=== PATIENT | male | born 1945 | race Hispanic/Latino ===

== ENCOUNTER 2019-07-22 06:29 | Day surgery (SDC) | payer MEDICARE ==
[~2019-07-22] VITALS: Ht 180.3 cm; Wt 125.2 kg
[~2019-07-22 06:29] MED LIST: ACET1TAB25 PO; AEC81 PO; ALBU18HF7 IH; ENAL10TA18 PO; EZET10TA13 PO; FENO135C4 PO; FURO80TA3 PO; GEMF600T5 PO; HUM10VIA SQ; METO25TA6 PO; METO50TA18 PO; METO5TAB2 PO; POTA-79 PO; PREG150C PO; RANI150C4 PO
[2019-07-22] MEDS ORDERED: SODIUM CHLORIDE 0.9% 1000ML 1,000 ML IV ONE (07:00)
[2019-07-22 08:18] VITALS: BP 161/57
[2019-07-22] MEDS ORDERED: potassium (08:27)
[2019-07-22] MEDS ORDERED: bisacodyl (08:27)
[2019-07-22] MEDS ORDERED: atorvastatin (08:27)
[2019-07-22] MEDS ORDERED: enalapril (08:27)
[2019-07-22] MEDS ORDERED: furosemide (08:27)
[2019-07-22] MEDS ORDERED: tramadol (08:27)
[2019-07-22] MEDS ORDERED: vascepa (08:27)
[2019-07-22] MEDS ORDERED: hydrocodon (08:27)
[2019-07-22] MEDS ORDERED: victoza (08:27)
[2019-07-22] MEDS ORDERED: tamsulosin (08:27)
[2019-07-22] MEDS ORDERED: OMEP40CA13 PO (08:27)
[2019-07-22] MEDS ORDERED: ASPI-1197 PO (08:27)
[2019-07-22] MEDS ORDERED: PROPOFOL 10 MG/ML 20ML VIAL IV ONE (08:40)
[2019-07-22 09:09] VITALS: BP 123/73
[2019-07-22 09:14] VITALS: BP 156/76
[2019-07-22 09:19] VITALS: BP 148/68
== END 2019-07-22 09:43 | disposition home or self-care (01) ==
LOC: ENDO 06:29 → DAH 06:29 → ENDO 09:43
PROVIDERS: ATTEND Internal Medicine
DX: Z12.11 Encounter for screening for malignant neoplasm of colon (principal); K63.5 Polyp of colon; K57.30 Diverticulosis of large intestine without perforation or abscess without bleeding; E11.9 Type 2 diabetes mellitus without complications; I10 Essential (primary) hypertension; E78.5 Hyperlipidemia, unspecified; I25.2 Old myocardial infarction; I25.10 Atherosclerotic heart disease of native coronary artery without angina pectoris; M19.90 Unspecified osteoarthritis, unspecified site; Z79.899 Other long term (current) drug therapy; Z79.82 Long term (current) use of aspirin; Z90.49 Acquired absence of other specified parts of digestive tract; Z98.890 Other specified postprocedural states; Z87.891 Personal history of nicotine dependence; Z95.5 Presence of coronary angioplasty implant and graft; Z82.49 Family history of ischemic heart disease and other diseases of the circulatory system; Z83.3 Family history of diabetes mellitus; Z82.5 Family history of asthma and other chronic lower respiratory diseases
CPT/HCPCS: 45380; 45385; 82948 ×3; 88305; 93005; A4215; A4221; A4222; A4223; A4606; A4615; A4663; J2704; J7030

== ENCOUNTER 2024-03-10 11:40 | Day surgery (SDC) | payer MEDICARE ==
[~2024-03-10] VITALS: Ht 180.3 cm; Wt 105.1 kg
[~2024-03-10 11:40] MED LIST changes: -ACET1TAB25 PO; -AEC81 PO; -ALBU18HF7 IH; +ASPI-1197 PO; -ENAL10TA18 PO; -EZET10TA13 PO; -FENO135C4 PO; -FURO80TA3 PO; -GEMF600T5 PO; -HUM10VIA SQ; -METO25TA6 PO; -METO50TA18 PO; -METO5TAB2 PO; +OMEP40CA21 PO; -POTA-79 PO; -PREG150C PO; -RANI150C4 PO; +atorvastatin; +bisacodyl; +enalapril; +furosemide; +hydrocodon; +potassium; +tamsulosin; +tramadol; +vascepa; +victoza
[2024-03-10 12:10] VITALS: BP 159/66; PULSE 72; RESP 19; TEMP 98
[2024-03-10 12:20] LABS: BASOPHILS # (AUTO) 0.01 K/uL (0.00-0.20); BASOPHILS % (AUTO) 0.1 % (0.0-5.0); EOSINOPHILS # (AUTO) 0.07 K/uL (0.00-0.70); EOSINOPHILS % (AUTO) 0.8 % (0.0-8.0); IMMATURE GRANULOCYTE ABSOLUTE 0.05 K/uL (0-1); LYMPHOCYTES # (AUTO) 1.6 K/uL (1.0-4.8); LYMPHOCYTES % (AUTO) 17.1 % (21.0-51.0); MEAN CORPUSCULAR HEMOGLOBIN 30.5 pg (27.0-33.0); MEAN CORPUSCULAR HGB CONC 32.7 g/dL (32.0-36.0); MEAN CORPUSCULAR VOLUME 93.4 fL (79-99); MONOCYTES # (AUTO) 0.7 K/uL (0.1-1.0); MONOCYTES % (AUTO) 7.2 % (3.0-13.0); NEUTROPHILS # (AUTO) 6.9 K/uL (1.8-7.7); NEUTROPHILS % (AUTO) 74.3 % (40.0-77.0); PLATELET COUNT (AUTO) 122 K/uL (130-400); RED BLOOD CELL COUNT(AUTO) 4.82 MIL/uL (4.50-6.20); RED CELL DISTRIBUTION WIDTH 13.2 % (11.0-15.5); WHITE BLOOD COUNT (AUTO) 9.2 K/uL (4.8-10.8)
[2024-03-10 12:38] LABS: POTASSIUM 3.9 mmol/L (3.5-5.1)
[2024-03-10 12:45] VITALS: BP 159/66; PULSE 72; RESP 16; TEMP 98
[2024-03-10 12:55] LABS: PROTHROMBIN TIME 10.8 SEC (9.6-11.6)
[2024-03-10] MEDS ORDERED: POTA-202 PO (12:55)
[2024-03-10] MEDS ORDERED: TAMS-1 PO (12:55)
[2024-03-10] MEDS ORDERED: LOSA25TA41 PO (12:55)
[2024-03-10] MEDS ORDERED: ATOR20TA65 PO (12:55)
[2024-03-10] MEDS ORDERED: prevagen PO (12:55)
[2024-03-10] MEDS ORDERED: FURO40TA5 PO (12:55)
[2024-03-10] MEDS ORDERED: INSU200I4 SQ (12:55)
[2024-03-10] MEDS ORDERED: ICOS1CAP PO (12:55)
[2024-03-10] MEDS ORDERED: LIRA0.6P SQ (12:55)
[2024-03-10] MEDS ORDERED: MULT-1259 PO (12:55)
[2024-03-10 12:56] LABS: PARTIAL THROMBOPLASTIN TIME 25.6 SEC (26.3-35.5)
[2024-03-10] MEDS ORDERED: BUPIvacaine/PF 0.25% 30ML VIAL IJ ONE (16:24)
[2024-03-10] MEDS ORDERED: LIDOCAINE HCL 1% MDV 50ML VIAL ONE (16:24)
[2024-03-10] MEDS ORDERED: ceFAZolin SODIUM 1 GM VIAL ONE (16:24)
[2024-03-10] MEDS ORDERED: MEPERIDINE-PF 25 MG/ML SYG ONE ×3 (17:13→17:46)
[2024-03-10] MEDS ORDERED: MIDAZOLAM HCL 1 MG/ML 2ML VIAL ONE ×3 (17:13→17:47)
[2024-03-10] MEDS ORDERED: TRAM50TA4 PO (18:17)
[2024-03-10 18:30] VITALS: BP 150/61; PULSE 66; RESP 16; TEMP 97.6
[2024-03-10] MEDS ORDERED: acetaMINOPHEN WITH coDEINE 1 TAB TAB PO PRN (18:30)
[2024-03-10] MEDS ORDERED: acetaMINOPHEN 500 MG TABLET PO PRN (18:30)
[2024-03-10 18:45] VITALS: BP 154/63; PULSE 83; RESP 16
[2024-03-10 19:00] VITALS: BP 152/61; PULSE 72; RESP 16
[2024-03-10 19:15] VITALS: BP 158/70; PULSE 72; RESP 16; TEMP 98
== END 2024-03-10 19:40 | disposition home or self-care (01) ==
LOC: DAH 11:40
PROVIDERS: ATTEND Internal Medicine Cardiovascular Disease
DX: Z45.02 Encounter for adjustment and management of automatic implantable cardiac defibrillator (principal); I25.5 Ischemic cardiomyopathy; I45.10 Unspecified right bundle-branch block; I50.22 Chronic systolic (congestive) heart failure; I25.10 Atherosclerotic heart disease of native coronary artery without angina pectoris; Z95.1 Presence of aortocoronary bypass graft; Z79.82 Long term (current) use of aspirin; Z79.01 Long term (current) use of anticoagulants; Z79.899 Other long term (current) drug therapy
CPT/HCPCS: 33263; 80048; 85025; 85610; 85730; 36415; 93005; C1721; J0690; J0665; J2250 ×3; J2175 ×3; J3490; A4215; A4222; A4221; A4663; A4216; A4606; A4223 ×3; 99156; 99157